=== PATIENT | male | born 1965 | race African-American/Black ===

== ENCOUNTER 2022-09-29 16:22 | Emergency (ER) | payer MEDICAID ==
[~2022-09-29] VITALS: Ht 180.3 cm; Wt 118.0 kg
[2022-09-29] MEDS ORDERED: HYDR-4798 PO (19:26)
[2022-09-29 19:35] VITALS: BP 134/76
== END 2022-09-29 19:38 | disposition home or self-care (01) ==
LOC: ER 16:26
DX: M25.562 Pain in left knee (principal); I10 Essential (primary) hypertension; F17.210 Nicotine dependence, cigarettes, uncomplicated; Z79.899 Other long term (current) drug therapy

== ENCOUNTER 2022-10-25 15:18 | Emergency (ER) | payer MEDICAID ==
[~2022-10-25] VITALS: Ht 180.3 cm; Wt 121.5 kg
[~2022-10-25 15:18] MED LIST: HYDR-4798 PO
[2022-10-25] MEDS ORDERED: HYDR-4798 PO (19:31)
[2022-10-25 19:55] VITALS: BP 149/89
== END 2022-10-25 20:11 | disposition home or self-care (01) ==
LOC: ER 15:18
DX: M25.561 Pain in right knee (principal); M25.562 Pain in left knee; G89.29 Other chronic pain; Z76.0 Encounter for issue of repeat prescription; M54.9 Dorsalgia, unspecified; M25.569 Pain in unspecified knee; I10 Essential (primary) hypertension; F17.210 Nicotine dependence, cigarettes, uncomplicated; F12.90 Cannabis use, unspecified, uncomplicated

== ENCOUNTER 2022-11-07 11:26 | Emergency (ER) | payer MEDICAID ==
[~2022-11-07] VITALS: Ht 180.3 cm; Wt 125.0 kg
[2022-11-07] MEDS ORDERED: HYDR-4798 PO (13:47)
[2022-11-07 13:59] VITALS: BP 139/91
== END 2022-11-07 13:50 | disposition home or self-care (01) ==
LOC: ER 11:26
DX: S80.02XA Contusion of left knee, initial encounter (principal); W18.39XA Other fall on same level, initial encounter; Y93.89 Activity, other specified; Y92.89 Other specified places as the place of occurrence of the external cause; Y99.8 Other external cause status
CPT/HCPCS: 73562

== ENCOUNTER 2022-11-17 20:05 | Emergency (ER) | payer MEDICAID ==
[~2022-11-17] VITALS: Ht 180.3 cm; Wt 118.0 kg
[2022-11-17] MEDS ORDERED: HYDR-4798 PO (23:31)
[2022-11-18 01:18] VITALS: BP 120/80
== END 2022-11-17 23:33 | disposition home or self-care (01) ==
LOC: ER 20:05
DX: M54.16 Radiculopathy, lumbar region (principal); M79.10 Myalgia, unspecified site; G89.29 Other chronic pain; M25.562 Pain in left knee; M25.561 Pain in right knee; I10 Essential (primary) hypertension; F17.210 Nicotine dependence, cigarettes, uncomplicated; Z79.899 Other long term (current) drug therapy

== ENCOUNTER 2023-05-22 01:22 | Emergency (ER) | payer MEDICAID ==
[~2023-05-22] VITALS: Ht 180.3 cm; Wt 118.0 kg
[2023-05-22 01:22] VITALS: BP 120/78; PULSE 79; RESP 20; TEMP 98.2
[2023-05-22] MEDS ORDERED: IBUPROFEN 800 MG TAB PO ONE (01:45)
[2023-05-22 05:50] VITALS: O2SAT 98
== END 2023-05-22 05:50 | disposition home or self-care (01) ==
LOC: ER 01:24
DX: M25.562 Pain in left knee (principal); G89.29 Other chronic pain; I11.0 Hypertensive heart disease with heart failure; I50.9 Heart failure, unspecified; Z98.890 Other specified postprocedural states; Z79.1 Long term (current) use of non-steroidal anti-inflammatories (NSAID)
CPT/HCPCS: 29505; 73562

== ENCOUNTER 2023-08-31 08:31 | Emergency (ER) | payer MEDICAID ==
[~2023-08-31] VITALS: Ht 180.3 cm; Wt 119.1 kg
[2023-08-31 08:49] VITALS: BP 154/98; PULSE 97; RESP 16; TEMP 98.8; O2SAT 97
[2023-08-31] MEDS ORDERED: HYDR-4072 PO (10:17)
== END 2023-08-31 10:34 | disposition home or self-care (01) ==
LOC: ER 08:31
DX: G89.29 Other chronic pain (principal); M54.59 Other low back pain; I11.0 Hypertensive heart disease with heart failure; I50.89 Other heart failure; Z76.0 Encounter for issue of repeat prescription; Z79.899 Other long term (current) drug therapy

== ENCOUNTER 2023-09-04 12:15 | Emergency (ER) | payer MEDICAID ==
[~2023-09-04] VITALS: Ht 180.3 cm; Wt 121.2 kg
[~2023-09-04 12:15] MED LIST changes: +HYDR-4072 PO
[2023-09-04 16:31] VITALS: BP 151/98; PULSE 83; RESP 18; TEMP 98.2; O2SAT 98
[2023-09-04] MEDS ORDERED: HYDR-4072 PO (17:45)
[2023-09-04] MEDS ORDERED: KETOROLAC TROMETH 60MG/2ML VIAL IM ONE (18:45)
[2023-09-04] MEDS ORDERED: HYDR-4798 PO (18:55)
== END 2023-09-04 19:12 | disposition home or self-care (01) ==
LOC: ER 12:15
DX: G89.29 Other chronic pain (principal); M54.59 Other low back pain; M25.561 Pain in right knee; M25.562 Pain in left knee; Z76.0 Encounter for issue of repeat prescription
CPT/HCPCS: 96372; 99283; J1885

== ENCOUNTER 2023-12-19 22:44 | Emergency (ER) | payer MEDICAID ==
[~2023-12-19] VITALS: Ht 180.3 cm; Wt 118.0 kg
[2023-12-20] MEDS: MORPHINE SULFATE 4 MG/ML SYR/VIAL IM ONE (01:54)
[2023-12-20] MEDS ORDERED: PHEN0.2512 PR (02:10)
[2023-12-20] MEDS ORDERED: SODIENE35 RE (02:10)
[2023-12-20 02:29] VITALS: BP 159/92; PULSE 83; RESP 18; O2SAT 97
== END 2023-12-20 02:48 | disposition home or self-care (01) ==
LOC: ER 22:44
DX: K64.8 Other hemorrhoids (principal); K59.00 Constipation, unspecified; M54.50 Low back pain, unspecified; G89.29 Other chronic pain; I11.0 Hypertensive heart disease with heart failure; I50.9 Heart failure, unspecified
CPT/HCPCS: 96372; 99283; J2270

== ENCOUNTER 2023-12-22 19:18 | Emergency (ER) | payer MEDICAID ==
[~2023-12-22] VITALS: Ht 180.3 cm; Wt 118.1 kg
[~2023-12-22 19:18] MED LIST changes: +PHEN0.2512 PR; +SODIENE35 RE
[2023-12-22 22:49] VITALS: BP 147/96; PULSE 110; RESP 20; TEMP 98.8; O2SAT 99
[2023-12-23] MEDS: ACETAMINOPHEN 500 MG TAB PO ONE (00:05)
[2023-12-23] MEDS: KETOROLAC TROMETH 60MG/2ML VIAL IM ONE (00:05)
[2023-12-23] MEDS ORDERED: PERCOT PO (00:25)
== END 2023-12-23 00:38 | disposition home or self-care (01) ==
LOC: ER 19:21
DX: K64.8 Other hemorrhoids (principal); M54.50 Low back pain, unspecified; I11.0 Hypertensive heart disease with heart failure; I50.9 Heart failure, unspecified; G89.29 Other chronic pain
CPT/HCPCS: 96372; 99283; J1885

== ENCOUNTER 2025-04-09 01:47 | Inpatient (IN) | payer MEDICAID ==
[~2025-04-09] VITALS: Ht 180.3 cm; Wt 123.5 kg
[~2025-04-09 01:47] MED LIST changes: +PERCOT PO
[2025-04-09 02:17] LABS: Basophils # (auto) 0 10 ^3/uL (0-0.2); Basophils % (auto) 0.5 % (0.0-2.0); Eosinophils # (auto) 0.1 10 ^3/uL (0-0.8); Eosinophils % (auto) 1.6 % (0.0-7.0); Hematocrit 39.3 % (41.0-53.0); Hemoglobin 13.4 g/dL (13.5-17.5); Lymphocytes # (auto) 1.8 10 ^3/uL (0.4-5.4); Lymphocytes % (auto) 20.5 % (10.0-50.0); Mean Corpuscular Hemoglobin 30.7 pg (28.0-32.0); Mean Corpuscular Hgb Conc. 34.1 g/dL (32.0-36.0); Mean Corpuscular Volume 90.2 fL (80.0-100.0); Monocytes # (auto) 0.8 10 ^3/uL (0-1.3); Monocytes % (auto) 8.9 % (0.0-12.0); Neutrophils # (auto) 5.9 10 ^3/uL (1.6-8.6); Neutrophils % (auto) 68.5 % (37.0-80.0); Platelet Count (auto) 238 10^3/uL (140-450); Red Blood Cells 4.36 10^6/uL (4.5-5.90); Red Cell Distribution Width 14.9 % (11.8-14.3); White Blood Cell 8.7 10^3/uL (4.4-10.8)
[2025-04-09 02:26] LABS: Potassium 3.8 mmol/L (3.5-5.1); Sodium 141 mmol/L (136-145)
[2025-04-09 02:27] LABS: Anion Gap 9 (5-15); Carbon Dioxide 21 mmol/L (20-31)
[2025-04-09 02:32] LABS: BUN/Creatinine Ratio 7.5 (10.0-20.0); Blood Urea Nitrogen 9 mg/dL (9-23); Glucose 102 mg/dL (74-106)
[2025-04-09 02:34] LABS: Chloride 111 mmol/L (98-107)
--- NOTE | 2025-04-09 02:49 | DVH ---
CHEST RADIOGRAPH Indication: Shortness of breath, chest pain, lower extremity edema Technique: Single frontal view of the chest was obtained COMPARISON: None FINDINGS: Lines and Tubes: None Lungs: Mild patchy bibasilar pulmonary airspace disease, [id number]. Small left pleural effusion. No pneumothorax. Cardiomediastinal contours: Unremarkable Bones: Unremarkable IMPRESSION: 1. Mild patchy bibasilar pulmonary airspace disease, [id number]. 2. Small left pleural effusion.
--- NOTE | 2025-04-09 03:26 | ED.PDOC ---
History of Present Illness HPI Comments 59 y/o M presents with c/o shortness of breath, chest and abdominal pain with inspiration, left arm tingling sensation, and chills. Patient is a poor historian. He endorses on unprovoked onset of symptoms after attempting to lie down to rest 2 hours ago prior to arrival. Rates pain a 9/10 in severity. No recent stressors, strenuous activities, ailments, sick contact, or travel endorsed. Patient states unknown taking his Lasix along with his other medications for the past 3 days, due to complexity in remembering to take them as directed. Patient denies having any cough, congestion, fever, nausea, vomiting, or further associated symptoms. Chief Complaint: Shortness of Breath Time Seen by MD: 01:45 Primary Care Provider: SALVATORE Reviewed Notes: Nurses Notes, Medications, Allergies Allergies: Coded Allergies: NO KNOWN ALLERGIES (Unverified , 09/29/22) Home Meds Active Scripts Oxycodone W/ Acetaminophen (Percocet 5/325MG) 1 Tab Tb, 1 TAB PO Q8HP PRN, #20 TAB Prov:WILLIAN RAMESH PAC 12/23/23 Phenylephrine HCl (Topical) (Preparation H) 0.25 % Sup, 0.25 % [place] DAILY, #12 SUPP Prov:JOHN DOBBINS PAC 12/20/23 Sodium Phosphates (FLEET ENEMA SIX PACK) Enema Torrie, 1 EA RE DAILY PRN for 6 Days, #6 EA Prov:JOHN DOBBINS PAC 12/20/23 Hydrocodone-Acetaminophen (Hydrocodone Bitartrate/AC 10-325 mg) 1 Tab Tab, 1 TAB PO Q6HPRN, #20 TAB 0 Refills Prov:NOEL RITCHIE 09/04/23 Hydrocodone-Acetaminophen (Hydrocodone/Acetaminophen 10-325 mg) 1 Tab Tab, 1 TAB PO Q8HP PRN for 5 Days, #15 TAB Prov:JOHN DOBBINS PAC 08/31/23 Hydrocodone-Acetaminophen (Hydrocodone Bitartrate/AC 10-325 mg) 1 Tab Tab, 1 TAB PO TID for 10 Days, #30 TAB Prov:ALLEY RUBALCAVAP 11/17/22 Hydrocodone-Acetaminophen (Hydrocodone Bitartrate/AC 10-325 mg) 1 Tab Tab, 1 TAB PO TIDP PRN, #30 TAB Prov:DOMITILAWILLIAN Malcom PAC 11/07/22 Hydrocodone-Acetaminophen (Hydrocodone Bitartrate/AC 10-325 mg) 1 Tab Tab, 1 TAB PO Q4HPRN PRN, #15 TAB 0 Refills Prov:EDGAR PERKINS 10/25/22 Hydrocodone-Acetaminophen (Hydrocodone Bitartrate/AC 10-325 mg) 1 Tab Tab, 1 TAB PO Q6HPRN PRN, #10 TAB 0 Refills Prov:EDGAR PERKINS 09/29/22 Information Source: Patient Mode of Arrival: Ambulatory Severity: Moderate Timing: Hours Duration: Since onset Prehospital treatment: None Review of Systems: REVIEW OF SYSTEMS: Chills, no fever, or fatigue HEENT: No sore throat, no earache, no congestion, no neck pain. Cardiac: Chest pain. No palpitations. Lungs: Shortness of breath, no cough. GI: Abdominal pain, no nausea, no vomiting, no diarrhea, no constipation : No dysuria, frequency, or urgency. No hematuria. Musculoskeletal: No joint pain , no joint swelling, no extremity edema. Skin: No rash, no itching. Neuro: Left arm tingling sensation, no headache, no dizziness, no weakness Vital Signs Vital Signs Date Time Temp Pulse Resp B/P (MAP) Pulse Ox O2 Delivery O2 Flow Rate FiO2 04/09/25 02:05 98.5 96 20 156/106 (123) 95 98.5 Physical Exam General: Awake, alert and oriented. No acute distress. Skin: Skin in warm, dry and intact. Appropriate color for ethnicity. HEENT: The head is normocephalic and atraumatic. Conjunctivae are clear without exudates or hemorrhage. Sclera is non-icteric. EOM are intact. No signs of nysta gmus. Eyelids are normal in appearance without swelling or lesions. Oral mucosa is pink and moist Neck: The neck is supple with normal range of motion. No JVD. Cardiac: Heart rate and rhythm are normal. No murmurs, gallops, or rubs are auscultated. Respiratory: No signs of respiratory distress. Rales at bilateral lung bases. Otherwise, lungs sounds are clear in all lobes bilaterally without rhonchi or wheezes. Abdominal: Left upper quadrant abdominal tenderness. Otherwise, abdomen is soft, without distention, guarding or rigidity. Bowel sounds are present and normoactive in all four quadrants. Extremities: Bilateral pitting edema. Upper and lower extremities are atraumatic in appearance without deformity. Neurological: The patient is awake, alert and oriented to person, place, and time with normal speech. Speech is clear. There is no facial asymmetry. Psychiatric: Appropriate mood and affect. Good judgement and insight. Past Medical History PAST MEDICAL HISTORY: CHF, High Lipids, HTN Past Medical History (Other): History of hemorrhoids Chronic lumbar back pain Chronic bilateral knee pain Neuropathy Surgical History: Hernia Repair Family History Family History: Unknown Social History Smoker: Non-Smoker Alcohol: Denies ETOH Use Drugs: Denies Drug Use Lives In: Home Constitutional: reports: others EENTM: reports: others Respiratory: reports: others Cardiovascular: reports: others Gastrointestinal: reports: others Genitourinary: reports: others Neurological: reports: others Musculoskeletal: reports: others Integumetry: reports: others Hematologic/Lymphatic: reports: others Endocrine: reports: others Psychiatric: reports: others Unable to Obtain due to: Other Physical Exam General Appearance: Other HEENT: Other Neck: Other Respiratory: Other Cardiovascular: Other Breast Exam: Other Gastrointestinal: Other Genitalia: Other Pelvic: Other Rectal: Other Extremities: Other Neurologic: Other Cerebellar Function: Other Reflexes: Other Skin: Other Lymphatic: Other Was a procedure done? Was a procedure done?: No Differential Dx Considerations may include: Differential diagnoses considered includebut arenot limited to acute Bronchitis, Asthma, COPD, Pneumothorax, PE, CHF, Pulmonary HTN, Anemia, CO Poisoning, Methemoglobinemia, Hyperventilation, Metabolic Acidosis, Pulmonary Edema, Pneumonia, ACS, Pericardial Tamponade, Anxiety, other X-Ray, Labs, Meds, VS Vital Signs Date Time Temp Pulse Resp B/P (MAP) Pulse Ox O2 Delivery O2 Flow Rate FiO2 04/09/25 02:05 98.5 96 20 156/106 (123) 95 98.5 04/09/25 01:54 85 Lab Test 04/09/25 02:44 04/09/25 01:57 Range/Units Troponin I High Sensitivity 6 7 </=54 ng/L Triglycerides Level Pending Cholesterol Level Pending LDL Cholesterol Pending HDL Cholesterol Pending White Blood Count 8.7 4.4-10.8 10^3/uL Red Blood Count 4.36 L 4.5-5.90 10^6/uL Hemoglobin 13.4 L 13.5-17.5 g/dL Hematocrit 39.3 L 41.0-53.0 % Mean Corpuscular Volume 90.2 80.0-100.0 fL Mean Corpuscular Hemoglobin 30.7 28.0-32.0 pg Mean Corpuscular Hemoglobin Concent 34.1 32.0-36.0 g/dL Red Cell Distribution Width 14.9 H 11.8-14.3 % Platelet Count 238 140-450 10^3/uL Mean Platelet Volume 7.6 6.9-10.8 fL Neutrophils (%) (Auto) 68.5 37.0-80.0 % Lymphocytes (%) (Auto) 20.5 10.0-50.0 % Monocytes (%) (Auto) 8.9 0.0-12.0 % Eosinophils (%) (Auto) 1.6 0.0-7.0 % Basophils (%) (Auto) 0.5 0.0-2.0 % Neutrophils # (Auto) 5.9 1.6-8.6 10 ^3/uL Lymphocytes # (Auto) 1.8 0.4-5.4 10 ^3/uL Monocytes # (Auto) 0.8 0-1.3 10 ^3/uL Eosinophils # (Auto) 0.1 0-0.8 10 ^3/uL Basophils # (Auto) 0 0-0.2 10 ^3/uL Nucleated Red Blood Cells 0.0 % Sodium Level 141 136-145 mmol/L Potassium Level 3.8 3.5-5.1 mmol/L Chloride Level 111 H 98-107 mmol/L Carbon Dioxide Level 21 20-31 mmol/L Anion Gap 9 5-15 Blood Urea Nitrogen 9 9-23 mg/dL Creatinine 1.20 0.700-1.30 mg/dL Glomerular Filtration Rate Calc 70 >90 mL/min BUN/Creatinine Ratio 7.5 L 10.0-20.0 Serum Glucose 102 74-106 mg/dL Hemoglobin A1c Pending Calcium Level 9.0 8.7-10.4 mg/dL B-Type Natriuretic Peptide 53.02 0-100 pg/mL Vitamin B12 Level Pending Folic Acid Pending Thyroid Stimulating Hormone (TSH) Pending Time of 1ST Reevaluation: 05:09 Reevaluation 1ST: Unchanged Patient Education/Counseling: Other (Need for admission) Family Education/Counseling: No Family Present Departure 1 Departure Time of Disposition: 03:54 Impression: Primary Impression: CHF (congestive heart failure) Additional Impression: Pleural effusion Disposition: ADMITTED INPATIENT Condition: Stable Comments Extensive evaluation was performed in attempt to identify or rule out: (See differential diagnosis section) The following tests were ordered, and results were reviewed by me and discussed with patient: (See diagnostic results section) The following test were independently interpreted by me: N/A I reviewed and agreed with the following test results read by other providers: N/A I reviewed the following notes from the pt's past medical encounters: December 22, 2023 counter for chronic back pain Additional information was gathered from interviewing the following independent historians: N/A Discussion of management or test interpretation with external physician/other qualified health manager critical care: N/A Addressed [ ]one or more chronic illnesses with severe exacerbation, progression, or side effects of treatment: [ ]an acute or chronic illness that poses a threat to life or bodily function: [ ] Decision regarding hospitalization or escalation of hospital level of care: Risk and benefits of admission for further treatment of patient's condition was considered. Due to patient's current clinical condition, high risk of decline and poor outcome if discharged and need for further inpatient management and monitoring, patient will be admitted to the hospital. Drug therapy requiring intensive monitoring for toxicity: N/A Parenteral controlled substances: N/A Decision regarding elective major surgery with identified patient or procedure risk factors: N/A Decision regarding emergency major surgery: N/A Decision not to resuscitate or to de-escalate care because of poor prognosis: N/A Diagnosis or treatment significantly limited by social determinants of health: N/A Decision regarding hospitalization or escalation of hospital level of care: Risks and benefits of admission for further treatment of patient's condition was considered however due to patient's stable condition patient will be discharged to follow up closely or return to care for worsening of condition or inability to follow up. Critical Care Note Critical Care Time?: No Stability Stability form required: No Heart Score Heart Score: Heart Score Response (Comments) Value History Moderate Suspicious 1 EKG Normal 0 Age 45-64 1 Risk Factors >3 or Hx ASHD 2 Troponin Normal limit 0 Total 4 I personally scribed for KEITH BURGOS MD ([email or web address]) on 04/09/25 at 03:26. Electronically submitted by Tommie White ([email or web address]). KEITH BURGOS MD Apr 09, 2025 03:26
--- NOTE | 2025-04-09 05:09 | DVH ---
EXAM: CT Chest Without Intravenous Contrast CLINICAL INDICATION: R/O basilar consolidations TECHNIQUE: Axial computed tomography images of the chest without intravenous contrast. This CT exam was performed using one or more of the following dose reduction techniques: automated exposure cont rol, adjustment of the mA and/or kV according to patient size, and/or use of iterative reconstruction technique. CONTRAST: COMPARISON: None FINDINGS: LUNGS AND PLEURAL SPACES: Bibasilar atelectasis or pneumonia. No mass. No significant effusion. HEART: Unremarkable. No cardiomegaly. No significant pericardial effusion. No significant sheldon ry artery calcifications. BONES/JOINTS: Unremarkable. No acute fracture. SOFT TISSUES: Unremarkable. VASCULATURE: Unremarkable. No thoracic aortic aneurysm. LYMPH NODES: Unremarkable. No enlarged lymph nodes. OTHER FINDINGS: . IMPRESSION: Bibasilar atelectasis or pneumonia.
--- NOTE | 2025-04-09 05:35 | DVHHPRES ---
History of Present Illness Resident Creating Document: JUDY KENNEY RESIDENT History of Present Illness This is a 59-year-old male with past medical history of CHF, dyslipidemia, hypertension, chronic lumbar pain, osteoarthritis of the knees, history of hemorrhoids who presented to the ED with chief complaint of left-sided chest pain in the inferior border of the last left rib. The patient states that the pain is localized in the border of the last left rib and gets intensified with deep breaths. Patient reports that the pain started four days ago and started suddenly after stretching and progressively got worse. The patient described the pain as a sharp/stabbing pain rated as 7/10 on the pain scale when taking deep breaths. Patient also reports bilateral lower extremity swelling that has been going on for years. Patient currently denies cough, sputum production or shortness of breath at this time. The patient also denied fever/chills or any other associated symptoms. Upon admission, CBC and BNP came back grossly unremarkable. Troponins came back negative, EKG showed normal sinus rhythm with no ST segment elevation or depression. BNP was normal range at 53.02 and an initial chest x-ray showed very minimal left-sided pleural effusion, bibasilar infiltrates not able to be excluded at this time. POCUS was performed at bedside observing mnimal B lines on left lung base. Will order a CT chest w/o contrast to have a better view of lung base parenchyma since patient is not having SOB, cough, sputum production or fever. We will admit the patient for further assessment and management. Past medical history: CHF, dyslipidemia, hypertension, chronic lumbar back pain, osteoarthritis of the knees, history of hemorrhoids Home medications: (Patient showed all medications), atenolol 100 mg daily, gabapentin 100 mg t.i.d., potassium eight mEq b.i.d., lidocaine patch, hydralazine 50 mg t.i.d., clonidine 0.1 mg t.i.d., Lasix 40 mg q.d., nifedipine 30 mg daily, atorvastatin 80 mg daily, lisinopril 10 mg daily Surgical history: Hernia repair Social history: Smokes half a pack a day cigarettes and also marijuana. Denies alcohol intake or any other drugs. Cardiovascular: CHF, HTN, hyperipidemia Musculoskeletal: Chronic low back pain, Osteoarthritis Past Surgical History: Hernia Repair Family History: None Smoke: <1 pack per day ALCOHOL: none Drugs: Marijuana Lives: with Family Domestic Violence: Neg Review of Systems Constitutional: No: Fever, Chills, Sweats, Weakness, Malaise, Other Eyes: No: Pain, Vision change, Conjunctivae inflammation, Eyelid inflammation, Other, Redness ENT: No: Ear pain, Ear discharge, Nose pain, Nose discharge, Nose congestion, Mouth pain, Mouth swelling, Throat pain, Throat swelling, Other Respiratory: Pleuritic Pain; No: Cough, Dry, Shortness of breath, SOB with excertion, Wheezing, Hemoptysis, Sputum, Wheezing, Other Cardiovascular: Chest Pain; No: Palpitations, Orthopnea, Paroxysmal Noc. Dyspnea, Edema, Lt Headedness, Other Gastrointestinal: No: Nausea, Vomiting, Abdominal Pain, Diarrhea, Constipation, Melena, Hematochezia, Other Genitourinary: No Dysuria, No Frequency, No Incontinence, No Hematuria, No Retention, No Other Musculoskeletal: back pain; No: other, neck pain, shoulder pain, arm pain, hand pain, leg pain, foot pain Skin: No: Rash, Lesions, Jaundice, Bruising, Other Neurological: No: Weakness, Numbness, Incoordination, Change in speech, Confusion, Seizures, Other Allergies: Coded Allergies: NO KNOWN ALLERGIES (Unverified , 09/29/22) Medications Current Medications Medications Dose Ordered Sig/Kisha Route Start Time Stop Time Status Last Admin Dose Admin Acetaminophen 650 mg Q6HP PRN PO 04/09/25 04:45 Acetaminophen/ Hydrocodone Bitart 1 tab Q4HP PRN PO 04/09/25 04:45 Enoxaparin Sodium 40 mg DAILY SC 04/09/25 10:00 Lisinopril 10 mg DAILY PO 04/09/25 08:00 Atenolol 50 mg DAILY PO 04/09/25 10:00 Furosemide 40 mg DAILY IV 04/09/25 10:00 Nifedipine 30 mg DAILY PO 04/09/25 13:00 Exam Vital Signs Vital Signs Date Time Temp Pulse Resp B/P (MAP) Pulse Ox O2 Delivery O2 Flow Rate FiO2 04/09/25 02:05 98.5 96 20 156/106 (123) 95 98.5 General Appearance: Alert, Oriented X3, Cooperative, No acute distress HEENT: Atraumatic, PERRLA, EOMI, Mucous membr. moist/pink Respiratory: Normal air movement, Other (Very minimal crackles on left lung base.) Cardiovascular: Regular rate, Normal S1, Normal S2, No murmurs Abdominal: Normal bowel sounds, Soft, No tenderness, No hepatospenomegaly, No masses Extremities: No clubbing, No cyanosis, Normal pulses, Other (There is bilateral lower extremity swelling 1+ pitting edema) Skin: No rashes, No breakdown, No significant lesion Neuro: Normal speech, Strength at 5/5 X4 ext, Normal tone, Sensation intact, Cranial nerves 3-12 NL, Reflexes 2+, Other (Patient uses a cane for walking and has significant difficulty walking due to muscle spasm in the lower back as well as bilateral lower extremity swelling.) Psych/Mental Status: Mental status NL, Mood NL Labs/Xrays Labs Test 04/09/25 02:44 04/09/25 01:57 Range/Units Troponin I High Sensitivity 6 </=54 ng/L White Blood Count 8.7 4.4-10.8 10^3/uL Red Blood Count 4.36 L 4.5-5.90 10^6/uL Hemoglobin 13.4 L 13.5-17.5 g/dL Hematocrit 39.3 L 41.0-53.0 % Mean Corpuscular Volume 90.2 80.0-100.0 fL Mean Corpuscular Hemoglobin 30.7 28.0-32.0 pg Mean Corpuscular Hemoglobin Concent 34.1 32.0-36.0 g/dL Red Cell Distribution Width 14.9 H 11.8-14.3 % Platelet Count 238 140-450 10^3/uL Mean Platelet Volume 7.6 6.9-10.8 fL Neutrophils (%) (Auto) 68.5 37.0-80.0 % Lymphocytes (%) (Auto) 20.5 10.0-50.0 % Monocytes (%) (Auto) 8.9 0.0-12.0 % Eosinophils (%) (Auto) 1.6 0.0-7.0 % Basophils (%) (Auto) 0.5 0.0-2.0 % Neutrophils # (Auto) 5.9 1.6-8.6 10 ^3/uL Lymphocytes # (Auto) 1.8 0.4-5.4 10 ^3/uL Monocytes # (Auto) 0.8 0-1.3 10 ^3/uL Eosinophils # (Auto) 0.1 0-0.8 10 ^3/uL Basophils # (Auto) 0 0-0.2 10 ^3/uL Nucleated Red Blood Cells 0.0 % Sodium Level 141 136-145 mmol/L Potassium Level 3.8 3.5-5.1 mmol/L Chloride Level 111 H 98-107 mmol/L Carbon Dioxide Level 21 20-31 mmol/L Anion Gap 9 5-15 Blood Urea Nitrogen 9 9-23 mg/dL Creatinine 1.20 0.700-1.30 mg/dL Glomerular Filtration Rate Calc 70 >90 mL/min BUN/Creatinine Ratio 7.5 L 10.0-20.0 Serum Glucose 102 74-106 mg/dL Calcium Level 9.0 8.7-10.4 mg/dL B-Type Natriuretic Peptide 53.02 0-100 pg/mL Assessment/Plan Assessment/Plan Assessment/plan Acute chest pain, likely pleuritic Acute small left-sided pleural effusion Ruled Out acute coronary syndrome Possible acute systolic/diastolic heart failure Primary hypertension Dyslipidemia Acute on chronic lumbar pain Plan -initial chest x-ray showed very minimal left-sided pleural effusion, infiltrates not able to rule out -ordered CT scan of the chest without contrast -initial EKG showed normal sinus rhythm with no ST segment elevation or depression. Troponins were negative and BNP was normal range. -ordered echocardiogram -start IV furosemide 40 mg b.i.d. -restart atenolol 50 mg daily, lisinopril 10 mg daily, nifedipine 30 mg daily -ordered lipid panel, Restart atorvastatin 80 mg daily -strict in's and out -cardiac diet Goals of care discussed with the patient at bedside for >35min, FULL CODE Plan discussed with Dr. Dodson Plan discussed with: Patient My Orders Orders - JUDY KENNEY Procedure Category Date Status Time Chest Without Contrast CT 04/09/25 Resulted 04:07 Admit ADMIT 04/09/25 Transmitted 04:37 Code Status CODE 04/09/25 Transmitted 04:37 Vital Signs SEVERO 04/09/25 In Process 04:37 Review Orders With ESVERO 04/09/25 In Process Adm. 04:37 Encourage Activity As SEVERO 04/09/25 In Process Tolerate 04:37 Acetaminophen Tablet PHA 04/09/25 In Process (Tylenol Tablet) 04:45 Notify Of Changes SEVERO 04/09/25 In Process From Base 04:37 Advance Directive SEVERO 04/09/25 In Process 04:37 Echo 2d Mode Cardiac US 04/09/25 Logged DOP 04:37 Urinalysis LAB 04/09/25 Logged 04:37 Lipid Panel LAB 04/09/25 In Process 04:37 Patient Condition ORDERS 04/09/25 Transmitted 04:37 Allergies SEVERO 04/09/25 In Process 04:37 Hydrocodone-Acet PHA 04/09/25 In Process 5/325mg Tab (Mcbain 04:45 Drug Screen LAB 04/09/25 Logged 04:37 Hemoglobin A1c LAB 04/09/25 In Process 04:37 Enoxaparin Sodium PHA 04/09/25 In Process (Lovenox) 10:00 Vitamin B12 LAB 04/09/25 In Process 04:37 Folate (Folic Acid) LAB 04/09/25 In Process 04:37 Thyroid Stimulating LAB 04/09/25 In Process Hormone 04:37 Strict I & O SEVERO 04/09/25 In Process 04:37 Cardiac DIET 04/09/25 Transmitted Diet-2gna,Lofat,Lochol Breakfast Lisinopril Tablet PHA 04/09/25 In Process (Zestril Tablet) 08:00 Atenolol Tablet PHA 04/09/25 In Process (Tenormin Tablet) 10:00 Furosemide Injection PHA 04/09/25 In Process (Lasix Injection) 10:00 Nifedipine Er PHA 04/09/25 In Process (Procardia Xl 13:00 Furosemide Injection PHA 04/09/25 Verified (Lasix Injection) 10:00 Date of Service: Apr 09, 2025 Billing Provider: MARTINEZ DODSON MD Common Visit Codes: 71174-TPRKWXQ INP/OBS CARE (HIGH) Secondary Visit Codes: 31909-PAYGYDOC CARE PLAN 30 MINUTES JUDY KENNEY RESIDENT Apr 09, 2025 05:35
[2025-04-09 05:40] LABS: Folate (Folic Acid) 10.61 ng/mL (>5.38)
--- NOTE | 2025-04-09 06:07 | ECG ---
[facility] Test Date: 2025-04-09 Test Time: 01:54:42 Pat Name: REAGAN SHAW Department: ED Room: 0286 Gender: M Jitterbug Operator: LIZETTE : 1965 Requested By: KEITH BURGOS Order Number: [id number] Reading MD: Byron Sahu Measurements Intervals [place] Rate: 85 P: 43 CT: 151 QRS: -15 QRSD: 100 T: 11 QT: 394 QTc: 469 Interpretive Statements Sinus rhythm Probable left atrial enlargement Abnormal R-wave progression, early transition Left ventricular hypertrophy Electronically Signed On 04-10-2025 9:27:36 PDT by Byron Sahu Please click the below link to view image of tracing.
[2025-04-09] MEDS: FUROSEMIDE 40 MG/4 ML VIAL IV ONE (06:29)
[2025-04-09] MEDS: CEFEPIME 1GM/ 50ML 50 ML IV ONE (06:30)
[2025-04-09 07:05] LABS: Urine Bacteria None Seen /hpf (None Seen)
[2025-04-09 07:29] LABS: Urine Blood Negative /uL (Negative); Urine Clarity Clear (Clear); Urine Color Light-Yellow (Yellow); Urine Mucus FEW (None Seen); Urine Protein, UAD Negative (Negative); Urine Specific Gravity 1.012 (1.001-1.035); Urine Squamous Epithelial Cell FEW /hpf (<5); Urine Urobilinogen Normal (Negative); Urine WBC 1 /HPF (0-3); Urine pH 5.5 (5.0-9.0)
[2025-04-09 07:45] VITALS: PULSE 85; RESP 19; O2SAT 92
[2025-04-09 07:56] LABS: Amphetamine Screen, Urine Neg (NEGATIVE); Barbiturate Scree,Urine Neg (NEGATIVE); Benzodiazephine Screen, Urine Neg (NEGATIVE); Opiate Scree,Urine Neg (NEGATIVE); Phencyclidine Screen, Urine Neg (NEGATIVE)
[2025-04-09 07:57] LABS: Cannabinoid Screen, Urine Neg (NEGATIVE); Cocaine Screen, Urine Neg (NEGATIVE)
[2025-04-09 08:00] VITALS: BP 140/100; PULSE 75; RESP 16; RESP 18; TEMP 97.5; O2SAT 96
[2025-04-09] MEDS: LISINOPRIL 5 MG TAB PO SCH (08:09)
[2025-04-09] MEDS ORDERED: NIFEdipine ER 30 MG TAB PO SCH ×2 (08:30→13:00)
[2025-04-09 08:33] LABS: Rapid Influenza A Negative (Negative); Rapid Influenza B Negative (Negative)
[2025-04-09 08:34] LABS: COVID19 ANTIGEN SOFIA FIA NEGATIVE (NEGATIVE)
--- NOTE | 2025-04-09 08:55 | DVH ---
Bilateral lower extremity venous duplex Clinical History: edema Comparison: None Findings: Duplex Doppler evaluation of the deep venous systems of both lower extremities from the common femora l veins to the popliteal veins including color Doppler and spectral/pulsed waveform analysis was perf ormed. RIGHT SIDE: The common femoral vein demonstrates appropriate compressibility and waveform variability. There is compressibility/patency of the great saphenous vein at the proximal thigh. The femoral vein demonstrates appropriate compressibility and waveform variability. The deep femoral vein demonstrates appropriate compressibility and waveform variability. The popliteal vein demonstrates appropriate compressibility and waveform variability. There is normal compressibility at the tibioperoneal trunk. LEFT SIDE: The common femoral vein demonstrates appropriate compressibility and waveform variability. There is compressibility/patency of the great saphenous vein at the proximal thigh. The femoral vein demonstrates appropriate compressibility and waveform variability. The deep femoral vein demonstrates appropriate compressibility and waveform variability. The popliteal vein demonstrates appropriate compressibility and waveform variability. There is normal compressibility at the tibioperoneal trunk. Bilateral Rivera's cysts measuring 6 cm in the right popliteal fossa and 3 cm in the left popliteal fo ssa. IMPRESSION: No right or left femoropopliteal venous thrombosis. Bilateral Rivera's cysts measuring 6 cm in the right popliteal fossa and 3 cm in the left popliteal fo ssa. END IMPRESSION: If clinical concern/symptoms persist or worsen, short-interval follow-up study is suggested.
[2025-04-09] MEDS: cefTRIAXone 1GM/50ML D5W 50 ML IV SCH (09:54)
[2025-04-09] MEDS: FUROSEMIDE 40 MG/4 ML VIAL IV SCH (09:55)
[2025-04-09] MEDS ORDERED: FUROSEMIDE 40 MG/4 ML VIAL IV SCH (10:00)
[2025-04-09] MEDS: ATENOLOL 25 MG TAB PO SCH (10:47)
[2025-04-09] MEDS: ENOXAPARIN SOD 40 MG/0.4 ML SYRINGE SC SCH (10:48)
[2025-04-09] MEDS: AZITHROMYCIN 500MG/ 250ML 250 ML IV SCH (10:49)
[2025-04-09 13:35] VITALS: BP 140/100; PULSE 75; RESP 16; RESP 18; TEMP 97.5; O2SAT 96
[2025-04-09 14:21] LABS: Cholesterol 193 mg/dL (< 200); HDL Cholesterol 47 mg/dL (40-59); LDL Cholesterol 128 mg/dL (< 100); Triglycerides 132 mg/dL (< 150)
[2025-04-09] MEDS: NIFEdipine ER 30 MG TAB PO SCH (14:49)
[2025-04-09 17:06] VITALS: BP 143/88; PULSE 72; RESP 20; TEMP 98.1; O2SAT 94
--- NOTE | 2025-04-09 17:58 | DVHPNRES ---
Progress Note Date Seen: Apr 09, 2025 Resident Creating Document: ANDRY MESA RESIDENT Has the PT tested + for MRSA If YES, has PT been informed?: No Medical Necessity Reason Pt with a Central, PICC or Fol: No Subjective Review of Systems This is a 59-year-old male with past medical history of CHF, dyslipidemia, hypertension, chronic lumbar pain, osteoarthritis of the knees, history of hemorrhoids who presented to the ED with chief complaint of left-sided chest pain in the inferior border of the last left rib. The patient states that the pain is localized in the border of the last left rib and gets intensified with deep breaths. Patient reports that the pain started four days ago and started suddenly after stretching and progressively got worse. The patient described the pain as a sharp/stabbing pain rated as 7/10 on the pain scale when taking deep breaths. Patient also reports bilateral lower extremity swelling that has been going on for years. Patient currently denies cough, sputum production or shortness of breath at this time. The patient also denied fever/chills or any other associated symptoms. Upon admission, CBC and BNP came back grossly unremarkable. Troponins came back negative, EKG showed normal sinus rhythm with no ST segment elevation or depression. BNP was normal range at 53.02 and an initial chest x-ray showed very minimal left-sided pleural effusion, bibasilar infiltrates not able to be excluded at this time. POCUS was performed at bedside observing mnimal B lines on left lung base. Will order a CT chest w/o contrast to have a better view of lung base parenchyma since patient is not having SOB, cough, sputum production or fever. We will admit the patient for further assessment and management. Past medical history: CHF, dyslipidemia, hypertension, chronic lumbar back pain, osteoarthritis of the knees, history of hemorrhoids Home medications: (Patient showed all medications), atenolol 100 mg daily, gabapentin 100 mg t.i.d., potassium eight mEq b.i.d., lidocaine patch, hydralazine 50 mg t.i.d., clonidine 0.1 mg t.i.d., Lasix 40 mg q.d., nifedipine 30 mg daily, atorvastatin 80 mg daily, lisinopril 10 mg daily Surgical history: Hernia repair Social history: Smokes half a pack a day cigarettes and also marijuana. Denies alcohol intake or any other drugs. Cardiovascular: CHF, HTN, hyperipidemia Musculoskeletal: Chronic low back pain, Osteoarthritis Past Surgical History: Hernia Repair Family History: None Smoke: <1 pack per day ALCOHOL: none Drugs: Marijuana Lives: with Family Domestic Violence: Neg 04/09/2025: CT scan showed small bibasal pneumonia, no pleural effusion, IV AB started, antiHTN meds Objective vital signs Vital Sign Date Time Temp Pulse Resp B/P (MAP) Pulse Ox O2 Delivery O2 Flow Rate FiO2 04/09/25 17:06 98.1 72 20 143/88 (106) 94 98.1 04/09/25 13:35 Room Air* 0 21 medications Current Medications Medications Dose Ordered Sig/Kisha Route Start Time Stop Time Status Last Admin Dose Admin Acetaminophen 650 mg Q6HP PRN PO 04/09/25 04:45 Acetaminophen/ Hydrocodone Bitart 1 tab Q4HP PRN PO 04/09/25 04:45 Enoxaparin Sodium 40 mg DAILY SC 04/09/25 10:00 04/09/25 10:48 40 MG Lisinopril 10 mg DAILY PO 04/09/25 08:00 04/09/25 08:09 10 MG Atenolol 50 mg DAILY PO 04/09/25 10:00 04/09/25 10:47 50 MG Furosemide 40 mg BID IV 04/09/25 10:00 Ceftriaxone Sodium 50 ml @ 100 mls/hr DAILY@09 IV 04/09/25 09:00 04/09/25 09:54 100 MLS/HR Azithromycin 250 ml @ 125 mls/hr DAILY IV 04/09/25 10:00 04/09/25 10:49 125 MLS/HR Nifedipine 30 mg DAILY PO 04/09/25 13:00 04/09/25 14:49 30 MG Examination General Appearance: Alert, Oriented X3, Cooperative, No acute distress HEENT: Atraumatic, PERRLA, EOMI, Mucous membr. moist/pink Respiratory: Normal air movement, Other (Very minimal crackles on left lung base.) Cardiovascular: Regular rate, Normal S1, Normal S2, No murmurs Abdominal: Normal bowel sounds, Soft, No tenderness, No hepatospenomegaly, No masses Extremities: No clubbing, No cyanosis, Normal pulses, Other (There is bilateral lower extremity swelling 1+ pitting edema) Skin: No rashes, No breakdown, No significant lesion bilateral lower extremity swelling Psych/Mental Status: Mental status NL, Mood NL laboratory and microbiology Laboratory Tests 04/09/25 01:57 Test 04/09/25 01:57 Range/Units Serum Glucose 102 74-106 mg/dL Problem List/Assessment/Plan Problem List/Assessment/Plan Pneumonia gram +/gram neg Acute chest pain, likely pleuritic Acute small left-sided pleural effusion Ruled Out acute coronary syndrome Possible acute systolic/diastolic heart failure Primary hypertension Dyslipidemia Acute on chronic lumbar pain Plan -initial chest x-ray showed very minimal left-sided pleural effusion, infiltrates not able to rule out -CT scan of the chest without contrast: pneumonia -Azithromycin and ceftriaxone IV -initial EKG showed normal sinus rhythm with no ST segment elevation or depression. Troponins were negative and BNP was normal range. -ordered echocardiogram, PENDING -start IV furosemide 40 mg b.i.d. -restart atenolol 50 mg daily, lisinopril 10 mg daily, nifedipine 30 mg daily -ordered lipid panel, Restart atorvastatin 80 mg daily -strict in's and out -cardiac diet Goals of care discussed with the patient at bedside for >35min, FULL CODE Plan discussed with Dr. Trevino Plan discussed with: Patient, Other My Orders My Orders Orders - ANDRY MESA Procedure Category Date Status Time Ceftriaxone 1gm/50ml PHA 04/09/25 In Process D5w (Rocephin) 09:00 Azithromycin 500mg/ PHA 04/09/25 In Process 250ml (Zithromax 50 10:00 Nifedipine Er PHA 04/09/25 In Process (Procardia Xl 13:00 Date of Service: Apr 09, 2025 Billing Provider: SHAYLEE TREVINO MD Common Visit Codes: [id number] INP/OBS CARE(HIGH) ANDRY MESA Apr 09, 2025 17:58 SHAYLEE TREVINO MD Apr 14, 2025 20:51
[2025-04-09 20:00] VITALS: PULSE 72; RESP 18; O2SAT 93
[2025-04-09 21:00] VITALS: BP 154/94; PULSE 73; RESP 18; TEMP 100.2; O2SAT 93
[2025-04-09] MEDS: HYDROcodone-ACET 5/325MG TAB PO PRN (21:40)
[2025-04-10 01:00] VITALS: BP 114/76; PULSE 66; RESP 18; TEMP 99; O2SAT 95
[2025-04-10] MEDS: ACETAMINOPHEN 325 MG TAB PO PRN (01:40)
[2025-04-10 05:00] VITALS: BP 129/91; PULSE 80; RESP 18; TEMP 98.2; O2SAT 94
[2025-04-10 12:42] VITALS: BP 115/80; PULSE 72; RESP 20; TEMP 98.2; O2SAT 100
--- NOTE | 2025-04-10 13:10 | DVHPNRES ---
Progress Note Date Seen: Apr 10, 2025 Resident Creating Document: ANDRY MESA RESIDENT Has the PT tested + for MRSA If YES, has PT been informed?: No Medical Necessity Reason Pt with a Central, PICC or Fol: No Subjective Review of Systems This is a 59-year-old male with past medical history of CHF, dyslipidemia, hypertension, chronic lumbar pain, osteoarthritis of the knees, history of hemorrhoids who presented to the ED with chief complaint of left-sided chest pain in the inferior border of the last left rib. The patient states that the pain is localized in the border of the last left rib and gets intensified with deep breaths. Patient reports that the pain started four days ago and started suddenly after stretching and progressively got worse. The patient described the pain as a sharp/stabbing pain rated as 7/10 on the pain scale when taking deep breaths. Patient also reports bilateral lower extremity swelling that has been going on for years. Patient currently denies cough, sputum production or shortness of breath at this time. The patient also denied fever/chills or any other associated symptoms. Upon admission, CBC and BNP came back grossly unremarkable. Troponins came back negative, EKG showed normal sinus rhythm with no ST segment elevation or depression. BNP was normal range at 53.02 and an initial chest x-ray showed very minimal left-sided pleural effusion, bibasilar infiltrates not able to be excluded at this time. POCUS was performed at bedside observing mnimal B lines on left lung base. Will order a CT chest w/o contrast to have a better view of lung base parenchyma since patient is not having SOB, cough, sputum production or fever. We will admit the patient for further assessment and management. Past medical history: CHF, dyslipidemia, hypertension, chronic lumbar back pain, osteoarthritis of the knees, history of hemorrhoids Home medications: (Patient showed all medications), atenolol 100 mg daily, gabapentin 100 mg t.i.d., potassium eight mEq b.i.d., lidocaine patch, hydralazine 50 mg t.i.d., clonidine 0.1 mg t.i.d., Lasix 40 mg q.d., nifedipine 30 mg daily, atorvastatin 80 mg daily, lisinopril 10 mg daily Surgical history: Hernia repair Social history: Smokes half a pack a day cigarettes and also marijuana. Denies alcohol intake or any other drugs. Cardiovascular: CHF, HTN, hyperipidemia Musculoskeletal: Chronic low back pain, Osteoarthritis Past Surgical History: Hernia Repair Family History: None Smoke: <1 pack per day ALCOHOL: none Drugs: Marijuana Lives: with Family Domestic Violence: Neg 04/09/2025: CT scan showed small bibasal pneumonia, no pleural effusion, IV AB started, antiHTN meds 04/10/2025: patient is getting better, pending echo readings Objective vital signs Vital Sign Date Time Temp Pulse Resp B/P (MAP) Pulse Ox O2 Delivery O2 Flow Rate FiO2 04/10/25 12:42 98.2 72 20 115/80 (92) 100 98.2 04/10/25 08:08 Room Air* 0 21 Total Intake and Output 04/09/25 04/09/25 04/10/25 15:00 23:00 07:00 Intake Total 350 ml 400 ml 900 ml Output Total 2575 ml 1500 ml Balance -2225 ml 400 ml -600 ml medications Current Medications Medications Dose Ordered Sig/Kisha Route Start Time Stop Time Status Last Admin Dose Admin Acetaminophen 650 mg Q6HP PRN PO 04/09/25 04:45 04/10/25 01:40 650 MG Acetaminophen/ Hydrocodone Bitart 1 tab Q4HP PRN PO 04/09/25 04:45 04/10/25 09:52 1 TAB Enoxaparin Sodium 40 mg DAILY SC 04/09/25 10:00 04/10/25 09:37 40 MG Lisinopril 10 mg DAILY PO 04/09/25 08:00 04/10/25 09:37 10 MG Atenolol 50 mg DAILY PO 04/09/25 10:00 04/10/25 09:38 50 MG Furosemide 40 mg BID IV 04/09/25 10:00 04/10/25 09:36 40 MG Ceftriaxone Sodium 50 ml @ 100 mls/hr DAILY@09 IV 04/09/25 09:00 04/10/25 09:38 100 MLS/HR Azithromycin 250 ml @ 125 mls/hr DAILY IV 04/09/25 10:00 04/10/25 09:41 125 MLS/HR Nifedipine 30 mg DAILY PO 04/09/25 13:00 04/10/25 09:38 30 MG Examination General Appearance: Alert, Oriented X3, Cooperative, No acute distress HEENT: Atraumatic, PERRLA, EOMI, Mucous membr. moist/pink Respiratory: Normal air movement, Other (Very minimal crackles on left lung base.) Cardiovascular: Regular rate, Normal S1, Normal S2, No murmurs Abdominal: Normal bowel sounds, Soft, No tenderness, No hepatospenomegaly, No masses Extremities: No clubbing, No cyanosis, Normal pulses, Other (There is bilateral lower extremity swelling 1+ pitting edema) Skin: No rashes, No breakdown, No significant lesion bilateral lower extremity swelling Psych/Mental Status: Mental status NL, Mood NL laboratory and microbiology Laboratory Tests 04/09/25 01:57 Test 04/09/25 01:57 Range/Units Serum Glucose 102 74-106 mg/dL Problem List/Assessment/Plan Problem List/Assessment/Plan Pneumonia gram +/gram neg Acute chest pain, likely pleuritic Acute small left-sided pleural effusion Ruled Out acute coronary syndrome Possible acute systolic/diastolic heart failure Primary hypertension Dyslipidemia Acute on chronic lumbar pain Plan -initial chest x-ray showed very minimal left-sided pleural effusion, infiltrates not able to rule out -CT scan of the chest without contrast: pneumonia -Azithromycin and ceftriaxone IV -initial EKG showed normal sinus rhythm with no ST segment elevation or depression. Troponins were negative and BNP was normal range. -ordered echocardiogram, pending reading -start IV furosemide 40 mg b.i.d. -restart atenolol 50 mg daily, lisinopril 10 mg daily, nifedipine 30 mg daily -strict in's and out -cardiac diet Goals of care discussed with the patient at bedside for >35min, FULL CODE Plan discussed with Dr. Trevino Plan discussed with: Patient, Other My Orders My Orders Orders - ANDRY MESA Procedure Category Date Status Time Communication Order ORDERS 04/10/25 Transmitted 07:06 Date of Service: Apr 10, 2025 Billing Provider: SHAYLEE TREVINO MD Common Visit Codes: [id number] INP/OBS CARE(HIGH) ANDRY MESA Apr 10, 2025 13:10 SHAYLEE TREVINO MD Apr 14, 2025 20:54
[2025-04-10 16:30] VITALS: BP 118/76; PULSE 71; RESP 22; TEMP 98.5; O2SAT 97
[2025-04-10 20:00] VITALS: O2SAT 93
[2025-04-10 21:16] VITALS: BP 112/82; PULSE 69; RESP 18; TEMP 97.2; O2SAT 97
[2025-04-11 05:00] VITALS: BP 106/77; PULSE 78; RESP 19; TEMP 97.5; O2SAT 96
[2025-04-11 09:21] VITALS: BP 111/65; PULSE 65; RESP 18; TEMP 96.3; O2SAT 94
[2025-04-11] MEDS ORDERED: LEVO750T40 PO (10:57)
--- NOTE | 2025-04-11 11:46 | DVHDSRES ---
Discharge Summary Date of Admission Resident Creating Document: ANDRY MESA RESIDENT Apr 09, 2025 at 04:37 Date of Discharge: Apr 11, 2025 Admitting Diagnosis Pneumonia gram +/gram neg Labs/Diagnostic Data: Laboratory Results Test 04/09/25 07:45 04/09/25 06:50 04/09/25 02:44 04/09/25 01:57 Influenza Type A Antigen Negative (Negative) Influenza Type B Antigen Negative (Negative) SARS-CoV-2 Antigen (Rapid) Negative (NEGATIVE) Urine Color Light-yellow (Yellow) Urine Clarity Clear (Clear) Urine pH 5.5 (5.0-9.0) Urine Specific [place] 1.012 (1.001-1.035) Urine Protein Negative (Negative) Urine Ketones Negative (Negative) Urine Blood Negative /uL (Negative) Urine Nitrite Negative (Negative) Urine Bilirubin Negative (Negative) Urine Urobilinogen Normal mg/dL (Negative) Urine Leukocyte Esterase Negative /uL (Negative) Urine RBC 1 /hpf (0 - 3) Urine Microscopic WBC 1 /HPF (0-3) Urine Squamous Epithelial Cells Few /hpf (<5) Urine Bacteria None seen /hpf (None Seen) Urine Mucus Few (None Seen) Urine Glucose Normal mg/dL (Normal) Urine Opiates Screen Neg (NEGATIVE) Urine Fentanyl Screen Neg (NEGATIVE) Urine Barbiturates Screen Neg (NEGATIVE) Urine Phencyclidine Screen Neg (NEGATIVE) Urine Amphetamines Screen Neg (NEGATIVE) Urine Benzodiazepines Screen Neg (NEGATIVE) Urine Cocaine Screen Neg (NEGATIVE) Urine Cannabinoids Screen Neg (NEGATIVE) Troponin I High Sensitivity 6 ng/L (</=54) Triglycerides Level 132 mg/dL (< 150) Cholesterol Level 193 mg/dL (< 200) LDL Cholesterol 128 mg/dL (< 100) HDL Cholesterol 47 mg/dL (40-59) White Blood Count 8.7 10^3/uL (4.4-10.8) Red Blood Count 4.36 10^6/uL (4.5-5.90) Hemoglobin 13.4 g/dL (13.5-17.5) Hematocrit 39.3 % (41.0-53.0) Mean Corpuscular Volume 90.2 fL (80.0-100.0) Mean Corpuscular Hemoglobin 30.7 pg (28.0-32.0) Mean Corpuscular Hemoglobin Concent 34.1 g/dL (32.0-36.0) Red Cell Distribution Width 14.9 % (11.8-14.3) Platelet Count 238 10^3/uL (140-450) Mean Platelet Volume 7.6 fL (6.9-10.8) Neutrophils (%) (Auto) 68.5 % (37.0-80.0) Lymphocytes (%) (Auto) 20.5 % (10.0-50.0) Monocytes (%) (Auto) 8.9 % (0.0-12.0) Eosinophils (%) (Auto) 1.6 % (0.0-7.0) Basophils (%) (Auto) 0.5 % (0.0-2.0) Neutrophils # (Auto) 5.9 10 ^3/uL (1.6-8.6) Lymphocytes # (Auto) 1.8 10 ^3/uL (0.4-5.4) Monocytes # (Auto) 0.8 10 ^3/uL (0-1.3) Eosinophils # (Auto) 0.1 10 ^3/uL (0-0.8) Basophils # (Auto) 0 10 ^3/uL (0-0.2) Nucleated Red Blood Cells 0.0 % Sodium Level 141 mmol/L (136-145) Potassium Level 3.8 mmol/L (3.5-5.1) Chloride Level 111 mmol/L (98-107) Carbon Dioxide Level 21 mmol/L (20-31) Anion Gap 9 (5-15) Blood Urea Nitrogen 9 mg/dL (9-23) Creatinine 1.20 mg/dL (0.700-1.30) Glomerular Filtration Rate Calc 70 mL/min (>90) BUN/Creatinine Ratio 7.5 (10.0-20.0) Serum Glucose 102 mg/dL (74-106) Hemoglobin A1c 5.6 % A1C (<5.7) Calcium Level 9.0 mg/dL (8.7-10.4) B-Type Natriuretic Peptide 53.02 pg/mL (0-100) Vitamin B12 Level 429 pg/mL (211-911) Folic Acid 10.61 ng/mL (>5.38) Thyroid Stimulating Hormone (TSH) 1.81 uIU/mL (0.55-4.78) Other Laboratory Tests 04/09/25 01:57 Brief Hx & Hospital Course: A 59-year-old male with a PMHx of CHF, dyslipidemia, HTN, chronic lumbar pain, and osteoarthritis presented with pleuritic chest pain and dyspnea. Initial workup showed a left-sided pleural effusion with concern for pneumonia. Chest X- ray and CT scan without contrast showed minimal left pleural effusion and bibasilar atelectasis versus pneumonia. He was started on azithromycin and ceftriaxone IV. EKG showed NSR with no ST changes. Troponins were negative and BNP within normal limits. TTE revealed EF 65%, normal valves, no effusion, normal RV function, and RVSP of 21 mmHg. He was diuresed with IV furosemide, restarted on lisinopril 10 mg daily, nifedipine 30 mg daily, and atenolol 50 mg daily. IV AB was also given, patient was DC to continue treatment PO with levofloxacin added. General Appearance: Alert, Oriented X3, Cooperative, No acute distress HEENT: Atraumatic, PERRLA, EOMI, Mucous membr. moist/pink Respiratory: Normal air movement, Other (Very minimal crackles on left lung base.) Cardiovascular: Regular rate, Normal S1, Normal S2, No murmurs Abdominal: Normal bowel sounds, Soft, No tenderness, No hepatospenomegaly, No masses Extremities: No clubbing, No cyanosis, Normal pulses, Other (There is bilateral lower extremity swelling 1+ pitting edema) Skin: No rashes, No breakdown, No significant lesion bilateral lower extremity swelling Psych/Mental Status: Mental status NL, Mood NL Case discussed with Dr Trevino Operations or Procedures EXAM: CT Chest Without Intravenous Contrast CLINICAL INDICATION: R/O basilar consolidations TECHNIQUE: Axial computed tomography images of the chest without intravenous contrast. This CT exam was performed using one or more of the following dose reduction techniques: automated exposure control, adjustment of the mA and/or kV according to patient size, and/or use of iterative reconstruction technique. CONTRAST: COMPARISON: None FINDINGS: LUNGS AND PLEURAL SPACES: Bibasilar atelectasis or pneumonia. No mass. No significant effusion. HEART: Unremarkable. No cardiomegaly. No significant pericardial effusion. No significant coronary artery calcifications. BONES/JOINTS: Unremarkable. No acute fracture. SOFT TISSUES: Unremarkable. VASCULATURE: Unremarkable. No thoracic aortic aneurysm. LYMPH NODES: Unremarkable. No enlarged lymph nodes. OTHER FINDINGS: . IMPRESSION: Bibasilar atelectasis or pneumonia. EXAM: Two-dimensional and M-mode echocardiogram with Doppler and color Doppler. Blood Pressure: 129/91 mmHg INDICATION CHF, EVAL LVEF AND R/O STRUCTURAL HEART RISK FACTORS Obesity: Height: 5'11, Weight: 272 DIMENSIONS LVDd 4.3 (3.8-5.7cm) LA (2D) 3.7 (1.9-4.0cm) Aortic Root 4.3 (2.0- 3.7cm) LVDs 2.8 (2.5-4.0cm) LA (MM) (1.9-4.0cm) Aortic Cusp Exc 1.9 (1.5- 2.0cm) EF (%) 55.0 (55-70%) Rt. Atrium 3.3 (1.9-4.0cm) Asc. Aorta 3.6 cm IVSd 1.7 (0.7-1.1cm) RV (D) (1.8-2.4cm) PWd 1.5 (0.7-1.1cm) Mitral Valve Mitral Mitral Stenosis E wave 0.33m/s MV Mean GR. mmHg A wave 0.54m/s MV Peak GR. mmHg E/A ratio 0.6 2D MVA cm2 DECEL Time 137ms PRESS 1/2 Time ms Aortic Valve Aortic Valve Aortic Stenosis V1 1.31m/s AO Mean GR. 4mmHg V2 1.18m/s AO Peak GR. 6mmHg LVOT Diameter 2.7 (1.8-2.4cm) Doppler ERNST 6.35cm2 Tricuspid Valve TR Velocity 2.10m/s RVSP 21mmHg Conclusion NORMAL LV EF AND IS 65% NORMAL VALVES NORMAL RV FUNCTION NO EFFUSION NORMAL RVSP IS 21 MM OF HG Condition at Discharge: Stable Final Diagnosis/Problems List Pneumonia gram +/gram neg Acute chest pain, likely pleuritic Acute small left-sided pleural effusion Ruled Out acute coronary syndrome hypertensive heart disease with acute diastolic heart failure, exacerbated Primary hypertension Dyslipidemia Acute on chronic lumbar pain Discharge Disposition: Home Discharge Instruct/Medications Diet: Consistent carbohydrate, Cardiac 2g Na,low cholest Activity: Light activity Follow Up/Referral: dc clinic 1 week Medications: see prescriptions Discharge Statement: "Patient was advised to return to the ER or call 911 if any headaches, dizziness, shortness of breath, chest pain, abdominal pain, bleeding, fevers, or worsening of medical condition. Patient was counseled about treatment plan, medications, possible side effects, patientverbalized understanding. All questions were answered to the best of my ability. This discharge took greater then 30 minutes in planning, reviewing documentation, counseling the patient, and discussing with other team members." ASSESSMENT ASSESSMENT Assessment pneumonia Date of Service: Apr 11, 2025 Billing Provider: SHAYLEE TREVINO MD Common Visit Codes: [id number] DISCH DAY >30min ANDRY MESA RESIDENT Apr 11, 2025 11:46 SHAYLEE TREVINO MD Apr 14, 2025 21:23
[2025-04-11 12:42] VITALS: BP 120/87; PULSE 71; RESP 20; TEMP 96.8; O2SAT 96
[2025-04-11 14:50] VITALS: BP 111/65; PULSE 75; TEMP 36
--- NOTE | 2025-04-12 23:30 | DVHSR ---
APPROVED REPORT EXAM: Two-dimensional and M-mode echocardiogram with Doppler and color Doppler. Blood Pressure: 129/91 mmHg INDICATION CHF, EVAL LVEF AND R/O STRUCTURAL HEART RISK FACTORS Obesity: Height: 5'11, Weight: 272 DIMENSIONS LVDd4.3 (3.8-5.7cm)LA (2D)3.7 (1.9-4.0cm)Aortic Root4.3 (2.0-3.7cm) LVDs2.8 (2.5-4.0cm)LA (MM) (1.9-4.0cm)Aortic Cusp Exc1.9 (1.5-2.0cm) EF (%) 55.0 (55-70%)Rt. Atrium3.3 (1.9-4.0cm)Asc. Aorta3.6 cm IVSd1.7 (0.7-1.1cm)RV (D) (1.8-2.4cm) PWd1.5 (0.7-1.1cm) Mitral Valve MitralMitral Stenosis E wave0.33m/sMV Mean GR.mmHg A wave0.54m/sMV Peak GR.mmHg E/A ratio0.62D MVAcm2 DECEL [id number] 1/2 Timems Aortic Valve Aortic ValveAortic Stenosis V11.31m/Crystal Mean GR.4mmHg V21.18m/Crystal Peak GR.6mmHg LVOT Diameter2.7 (1.8-2.4cm)Doppler AVA6.35cm2 Tricuspid Valve TR Velocity2.10m/s [id number] Conclusion NORMAL LV EF AND IS 65% NORMAL VALVES NORMAL RV FUNCTION NO EFFUSION NORMAL RVSP IS 21 MM OF HG
== END 2025-04-11 15:30 | disposition home or self-care (01) | DRG 137 ==
LOC: ER 01:48 → OVERFLOW 04:37 → WEST WING 13:19
PROVIDERS: ADMIT Student in an Organized Health Care Education/Training Program; ATTEND Emergency Medicine
DX: J15.69 Pneumonia due to other Gram-negative bacteria (principal); I50.33 Acute on chronic diastolic (congestive) heart failure; I16.0 Hypertensive urgency; J90 Pleural effusion, not elsewhere classified; J15.9 Unspecified bacterial pneumonia; G62.9 Polyneuropathy, unspecified; I11.0 Hypertensive heart disease with heart failure; E78.5 Hyperlipidemia, unspecified; G89.29 Other chronic pain; M54.50 Low back pain, unspecified; M25.561 Pain in right knee; F17.210 Nicotine dependence, cigarettes, uncomplicated; Z20.822 Contact with and (suspected) exposure to COVID-19; M25.562 Pain in left knee; Z79.891 Long term (current) use of opiate analgesic; Z79.1 Long term (current) use of non-steroidal anti-inflammatories (NSAID); Z79.899 Other long term (current) drug therapy
CPT/HCPCS: 36415; 71045; 71250; 80048; 80061; 80307; 81001; 82607; 82746; 83036; 83880; 84443; 84484; 85025; 87426; 87804; 93005; 93306; 93970; 96365; G0378